=== PATIENT | male | born 1980 | race Two or more races ===

== ENCOUNTER 2023-04-22 18:50 | Inpatient (IN) | payer SELFPAY ==
[~2023-04-22] VITALS: Ht 167.6 cm; Wt 92.7 kg
[2023-04-22 19:58] LABS: Basophils # (auto) 0.1 10 ^3/uL (0-0.2); Basophils % (auto) 0.9 % (0.0-2.0); Eosinophils # (auto) 0.1 10 ^3/uL (0-0.8); Eosinophils % (auto) 0.4 % (0.0-7.0); Hematocrit 48.1 % (41.0-53.0); Hemoglobin 16.3 g/dL (13.5-17.5); Lymphocytes # (auto) 1.4 10 ^3/uL (0.4-5.4); Lymphocytes % (auto) 9.9 % (10.0-50.0); Mean Corpuscular Hemoglobin 31.5 pg (28.0-32.0); Mean Corpuscular Hgb Conc. 33.9 g/dL (32.0-36.0); Mean Corpuscular Volume 92.8 fL (80.0-100.0); Monocytes # (auto) 0.7 10 ^3/uL (0-1.3); Monocytes % (auto) 4.5 % (0.0-12.0); Neutrophils # (auto) 12.2 10 ^3/uL (1.6-8.6); Neutrophils % (auto) 84.3 % (37.0-80.0); Red Blood Cells 5.19 10^6/uL (4.5-5.90); Red Cell Distribution Width 14.6 % (11.8-14.3); White Blood Cell 14.5 10^3/uL (4.4-10.8)
[2023-04-22] MEDS ORDERED: OCTREOTIDE ACETATE 100 MCG in SODIUM CHL 0.9% 50 ML IV ONE (20:00)
[2023-04-22] MEDS ORDERED: PANTOPRAZOLE 80 MG in SODIUM CHL 0.9% 100 ML IV ONE (20:00)
[2023-04-22] MEDS ORDERED: PANTOPRAZOLE 40mg/50ML NS AE 50 ML IV ONE (20:00)
[2023-04-22] MEDS ORDERED: SODIUM CHLORIDE 0.9% 1,000 ML IV ONE ×2 (20:00)
[2023-04-22] MEDS ORDERED: ONDANSETRON HCL 4 MG/2 ML VIAL IV ONE (20:00)
[2023-04-22 20:11] LABS: INR 0.93 (0.9-1.15); Prothrombin Time 9.8 sec (9.3-11.8)
[2023-04-22 20:37] LABS: Alanine Aminotransferase 34 U/L (7-40); Albumin 4.7 g/dL (3.2-4.8); Alkaline Phosphatase 133 U/L (46-116); Anion Gap 9 (5-15); Aspartate Aminotransferase 19 U/L (13-40); BUN/Creatinine Ratio 8.8 (10.0-20.0); Bilirubin, Total 0.4 mg/dL (0.2-1.0); Blood Urea Nitrogen 7 mg/dL (9-23); Calcium 9.6 mg/dL (8.7-10.4); Carbon Dioxide 24 mmol/L (20-30); Chloride 106 mmol/L (98-107); Glucose 128 mg/dL (74-106); Potassium 3.6 mmol/L (3.5-5.1); Sodium 139 mmol/L (136-145); Total Protein 7.4 g/dL (5.7-8.2)
[2023-04-22] MEDS ORDERED: TEMAZEPAM 15 MG CAP PO PRN (20:45)
[2023-04-22] MEDS ORDERED: HYDROcodone-ACET 5/325MG TAB PO PRN (20:45)
[2023-04-22] MEDS ORDERED: ONDANSETRON HCL 4 MG/2 ML VIAL IV PRN (20:45)
[2023-04-22] MEDS ORDERED: ACETAMINOPHEN 325 MG TAB PO PRN (20:45)
[2023-04-22] MEDS ORDERED: OCTREOTIDE ACETATE 100 MCG/ML VL ONE (21:25)
[2023-04-22] MEDS ORDERED: PANTOPRAZOLE 40 MG/10 ML VIAL INJ IV ONE (21:25)
[2023-04-22] MEDS ORDERED: OCTREOTIDE ACETATE 500 MCG/ML VL ONE (21:26)
[2023-04-22] MEDS: OCTREOTIDE ACETATE 500 MCG in SODIUM CHL 0.9% 99 ML IV SCH (21:54)
[2023-04-22] MEDS ORDERED: MORPHINE SULFATE INJ 2 MG/ml SYRG IV PRN (22:00)
[2023-04-22] MEDS: hydrALAZINE HCL 20 MG/ML VL IV PRN (22:07)
[2023-04-22] MEDS ORDERED: amLODIPine BESYLATE 5 MG TAB PO ONE (23:00)
[2023-04-22 23:20] VITALS: PULSE 96; RESP 20; O2SAT 95
[2023-04-23] MEDS: metroNIDAZOLE 500MG/100ML 100 ML IV SCH ×2 (00:07→06:30)
[2023-04-23 02:01] LABS: Urine Bacteria NONE SEEN /hpf (None Seen); Urine Blood Negative /uL (Negative); Urine Clarity Clear (Clear); Urine Color Colorless (Yellow); Urine Mucus FEW (None Seen); Urine Protein, UAD Negative (Negative); Urine Specific Gravity 1.011 (1.001-1.035); Urine Urobilinogen Normal (Negative); Urine WBC 1 /hpf (0 - 3); Urine pH 6.5 (5.0-8.0)
[2023-04-23] MEDS ORDERED: LABETALOL HCL 5 MG/ML 4ML SYRINGE IV ONE (02:15)
[2023-04-23] MEDS: SODIUM CHLORIDE 0.9% 1,000 ML IV SCH ×2 (02:52→13:30)
[2023-04-23] MEDS ORDERED: cloNIDine HCL 0.1 MG TAB PO PRN (03:45)
[2023-04-23] MEDS ORDERED: OCTREOTIDE ACETATE 500 MCG/ML VL ONE (06:15)
[2023-04-23] MEDS: OCTREOTIDE ACETATE 500 MCG in SODIUM CHL 0.9% 99 ML IV SCH ×2 (06:18→15:43)
[2023-04-23 07:06] LABS: Basophils # (auto) 0.1 10 ^3/uL (0-0.2); Basophils % (auto) 0.6 % (0.0-2.0); Eosinophils # (auto) 0.2 10 ^3/uL (0-0.8); Eosinophils % (auto) 1.9 % (0.0-7.0); Hemoglobin 14.8 g/dL (13.5-17.5); Lymphocytes # (auto) 2.1 10 ^3/uL (0.4-5.4); Mean Corpuscular Hemoglobin 31.3 pg (28.0-32.0); Mean Corpuscular Hgb Conc. 33.5 g/dL (32.0-36.0); Mean Corpuscular Volume 93.2 fL (80.0-100.0); Monocytes # (auto) 0.8 10 ^3/uL (0-1.3); Monocytes % (auto) 6.7 % (0.0-12.0); Neutrophils # (auto) 8.5 10 ^3/uL (1.6-8.6); Neutrophils % (auto) 72.8 % (37.0-80.0); Red Blood Cells 4.72 10^6/uL (4.5-5.90); Red Cell Distribution Width 14.9 % (11.8-14.3); White Blood Cell 11.6 10^3/uL (4.4-10.8)
[2023-04-23 07:11] LABS: Alanine Aminotransferase 27 U/L (7-40); Albumin 4.1 g/dL (3.2-4.8); Alkaline Phosphatase 117 U/L (46-116); Anion Gap 6 (5-15); Aspartate Aminotransferase 15 U/L (13-40); BUN/Creatinine Ratio 6.9 (10.0-20.0); Bilirubin, Total 0.9 mg/dL (0.2-1.0); Blood Urea Nitrogen 5 mg/dL (9-23); Calcium 8.6 mg/dL (8.7-10.4); Carbon Dioxide 25 mmol/L (20-30); Chloride 105 mmol/L (98-107); Glucose 131 mg/dL (74-106); Potassium 3.7 mmol/L (3.5-5.1); Sodium 136 mmol/L (136-145); Total Protein 6.5 g/dL (5.7-8.2)
[2023-04-23 07:44] VITALS: PULSE 90; RESP 17; O2SAT 93
[2023-04-23 10:00] VITALS: BP 170/107; PULSE 89; RESP 18; TEMP 98; O2SAT 97
[2023-04-23] MEDS: amLODIPine BESYLATE 5 MG TAB PO SCH (10:27)
[2023-04-23] MEDS: hydrALAZINE HCL 20 MG/ML VL IV PRN (10:28)
[2023-04-23] MEDS ORDERED: PANTOPRAZOLE 40 MG/10 ML VIAL INJ IV ONE (11:15)
[2023-04-23] MEDS ORDERED: LISINOPRIL 10 MG TAB PO ONE (11:15)
[2023-04-23 12:57] LABS: Magnesium 1.7 mg/dL (1.6-2.6)
[2023-04-23 13:00] VITALS: BP 154/103; PULSE 86; RESP 16; TEMP 98.4; O2SAT 95
[2023-04-23 17:00] VITALS: BP 155/103; PULSE 90; RESP 20; TEMP 98.3; O2SAT 96
[2023-04-23 20:00] VITALS: PULSE 76; RESP 19; O2SAT 95
[2023-04-23] MEDS: PANTOPRAZOLE 40 MG/10 ML VIAL INJ IV SCH (21:08)
[2023-04-23 22:00] VITALS: BP 132/93; PULSE 76; RESP 19; TEMP 98.2; O2SAT 95
[2023-04-24] MEDS: OCTREOTIDE ACETATE 500 MCG in SODIUM CHL 0.9% 99 ML IV SCH (02:16)
[2023-04-24 05:00] VITALS: BP 134/83; PULSE 78; RESP 18; TEMP 99.1; O2SAT 95
[2023-04-24 06:24] LABS: Basophils # (auto) 0 10 ^3/uL (0-0.2); Basophils % (auto) 0.4 % (0.0-2.0); Eosinophils # (auto) 0.3 10 ^3/uL (0-0.8); Eosinophils % (auto) 3.2 % (0.0-7.0); Hematocrit 45.8 % (41.0-53.0); Hemoglobin 15.5 g/dL (13.5-17.5); Lymphocytes # (auto) 2.2 10 ^3/uL (0.4-5.4); Lymphocytes % (auto) 21.2 % (10.0-50.0); Mean Corpuscular Hemoglobin 31.8 pg (28.0-32.0); Mean Corpuscular Hgb Conc. 33.9 g/dL (32.0-36.0); Mean Corpuscular Volume 93.8 fL (80.0-100.0); Monocytes # (auto) 0.7 10 ^3/uL (0-1.3); Monocytes % (auto) 6.9 % (0.0-12.0); Neutrophils % (auto) 68.3 % (37.0-80.0); Nucleated Red Blood Cells % 0.1 %; Red Blood Cells 4.88 10^6/uL (4.5-5.90); Red Cell Distribution Width 14.6 % (11.8-14.3); White Blood Cell 10.3 10^3/uL (4.4-10.8)
[2023-04-24] MEDS: SODIUM CHLORIDE 0.9% 1,000 ML IV SCH (06:40)
[2023-04-24 06:49] LABS: Anion Gap 6 (5-15); Carbon Dioxide 26 mmol/L (20-30); Chloride 105 mmol/L (98-107); Potassium 3.9 mmol/L (3.5-5.1); Sodium 137 mmol/L (136-145)
[2023-04-24 06:51] LABS: Calcium 8.7 mg/dL (8.5-10.1)
[2023-04-24 06:55] LABS: Glucose 117 mg/dL (74-106)
[2023-04-24 06:56] LABS: BUN/Creatinine Ratio 7.8 (10.0-20.0); Blood Urea Nitrogen 6 mg/dL (9-23)
[2023-04-24 09:00] VITALS: BP 147/98; PULSE 65; RESP 20; TEMP 98.3; O2SAT 96
[2023-04-24] MEDS ORDERED: LISINOPRIL 10 MG TAB PO SCH (10:00)
[2023-04-24] MEDS ORDERED: PANTOPRAZOLE 40 MG/10 ML VIAL INJ IV SCH (10:00)
[2023-04-24] MEDS ORDERED: OMEP20TA PO (10:03)
[2023-04-24] MEDS ORDERED: CLAR1TAB21 PO (10:03)
[2023-04-24] MEDS ORDERED: AMOX500C2 PO (10:03)
[2023-04-24] MEDS: PANTOPRAZOLE 40 MG/10 ML VIAL INJ IV SCH (10:08)
[2023-04-24] MEDS: amLODIPine BESYLATE 5 MG TAB PO SCH (10:09)
== END 2023-04-24 15:45 | disposition home or self-care (01) | DRG 370 ==
LOC: ER 18:50 → OVERFLOW 22:28 → CENTRAL 04-23 09:48
PROVIDERS: ADMIT Internal Medicine Pulmonary Disease; ATTEND Student in an Organized Health Care Education/Training Program
DX: I85.01 Esophageal varices with bleeding (principal); I16.0 Hypertensive urgency; F10.10 Alcohol abuse, uncomplicated; F17.200 Nicotine dependence, unspecified, uncomplicated; E66.9 Obesity, unspecified; R00.0 Tachycardia, unspecified; D72.829 Elevated white blood cell count, unspecified; Z82.49 Family history of ischemic heart disease and other diseases of the circulatory system; Z83.3 Family history of diabetes mellitus; Z87.11 Personal history of peptic ulcer disease; Z71.6 Tobacco abuse counseling; Z68.33 Body mass index [BMI] 33.0-33.9, adult
CPT/HCPCS: 36415; 71045; 74176; 80048; 80053; 80061; 80320; 81001; 83036; 83690; 83735; 84443; 84484; 85025; 85610; 86850; 86900; 86901; 87040; 99291; C9113; G0378; J2405; J3490; J7060